=== PATIENT | male | born 1955 | race Caucasian/White ===

== ENCOUNTER → 2022-03-11 | Outpatient (CLI) | payer MEDICARE ==
[2022-03-11 10:42] LABS: BUN/CREATININE RATIO 22 (0-10)
[2022-03-12 08:14] LABS: ANTISTREPTOLYSIN O AB <20.0 IU/mL (0.0-200.0); COMPLEMENT C3, SERUM 154 mg/dL (82-167); COMPLEMENT C4, SERUM 31 mg/dL (12-38)
[2022-03-12 15:11] LABS: A/G RATIO 1.2 (0.7-1.7); ALBUMIN 3.1 g/dL (2.9-4.4); ALPHA-1-GLOBULIN 0.2 g/dL (0.0-0.4); ALPHA-2-GLOBULIN 0.9 g/dL (0.4-1.0); BETA GLOBULIN 0.9 g/dL (0.7-1.3); GAMMA GLOBULIN 0.7 g/dL (0.4-1.8); GLOBULIN, TOTAL 2.7 g/dL (2.2-3.9); IMMUNOGLOBULIN A, QN, SERUM 112 mg/dL (61-437); IMMUNOGLOBULIN G, QN, SERUM 692 mg/dL (603-1613); IMMUNOGLOBULIN M, QN, SERUM 78 mg/dL (20-172); M-SPIKE Not Observed g/dL (Not Observed); PROTEIN, TOTAL, SERUM 5.8 g/dL (6.0-8.5)
[2022-03-12 16:12] LABS: ATYPICAL PANCA 1:20 titer (Neg:<1:20); CYTOPLASMIC (C-ANCA) <1:20 titer (Neg:<1:20); PERINUCLEAR (P-ANCA) <1:20 titer (Neg:<1:20)
[2022-03-13 21:07] LABS: ANTIGLOMERULAR BM AB <0.2 units (0.0-0.9)
== END ==
LOC: LAB 09:26
PROVIDERS: Internal Medicine Nephrology
DX: N18.9 Chronic kidney disease, unspecified (principal)
CPT/HCPCS: 36415; 80053; 81001; 82784; 84155; 84165; 86038; 86060; 86160; 86256; 86334

== ENCOUNTER → 2022-03-20 | Outpatient (CLI) | payer MEDICARE ==
[~2022-03-20] MED LIST: AMLODIPINE BESY10 MG PO; ATORVASTATIN CA80 MG PO; CITALOPRAM HBR40 MG PO; FLOMAX 0.4 MG0.4 MG PO; GLIPIZIDE10 MG PO; JANUMET 50-5001 EACH PO; KERENDIA10 MG PO; LISINOPRIL20 MG PO; SPIRONOLACTONE50 MG PO; TOUJEO MAX300 UNIT/1 SQ; VITAMIN B-121000 MC2 SL; VITAMIN D325 MC6 PO
[2022-03-20 08:18] LABS: HEMOGLOBIN 11.3 gm/dl (14.0-17.5); RED BLOOD COUNT 3.9 M/UL (4.20-5.50); WHITE BLOOD COUNT 8.9 K/UL (4.5-11.0)
[2022-03-20 08:44] LABS: BUN/CREATININE RATIO 18 (0-10)
== END ==
LOC: LAB 07:51
PROVIDERS: Internal Medicine Nephrology
DX: N18.9 Chronic kidney disease, unspecified (principal)
CPT/HCPCS: 36415; 80053; 81001; 82043; 82570; 84156; 85027; 85610; 85730

== ENCOUNTER → 2022-03-24 | Outpatient (CLI) | payer MEDICARE | LOC: CT 06:14 | DX: N17.0 Acute kidney failure with tubular necrosis (principal); I12.9 Hypertensive chronic kidney disease with stage 1 through stage 4 chronic kidney disease, or unspecified chronic kidney disease; E11.22 Type 2 diabetes mellitus with diabetic chronic kidney disease; N18.9 Chronic kidney disease, unspecified; R80.9 Proteinuria, unspecified; N40.0 Benign prostatic hyperplasia without lower urinary tract symptoms; Z87.891 Personal history of nicotine dependence; Z23 Encounter for immunization; Z79.4 Long term (current) use of insulin; Z79.899 Other long term (current) drug therapy | CPT/HCPCS: 77012; 82962; 88305; 88313; 88346; 88348 ==